=== PATIENT | female | born 1980 | race Caucasian/White ===

== ENCOUNTER 2016-09-13 20:29 | Emergency (ER) | payer MEDICARE, OTHER ==
[2016-09-13 22:17] LABS: BASOPHIL % 0.4 % (0-2); PLATELET COUNT 325 x10^3mcL (130-400); RED CELL DISTRIBUTION WIDTH 13.2 % (11.5-14.5)
[2016-09-13 22:31] LABS: CALCIUM 9.2 mg/dL (8.5-10.1); CARBON DIOXIDE 29.3 mmol/L (21-32); CHLORIDE SERUM 104 mmol/L (98-107); CREATININE SERUM 0.7 mg/dL (0.6-1.0); GFR1 > 60 mL/min; GLUCOSE SERUM 117 mg/dL (74-106); POTASSIUM SERUM 3.6 mmol/L (3.5-5.1); SODIUM SERUM 141 mmol/L (136-145)
[2016-09-13 22:39] LABS: ALBUMIN 3.4 g/dL (3.4-5.0); ALKALINE PHOSPHATASE 55 U/L (46-116); ALT/SGPT 15 U/L (14-59); AST/SGOT 10 U/L (15-37); BILIRUBIN TOTAL 0.2 mg/dL (0.20-1.00); MAGNESIUM 2.1 mg/dL (1.8-2.4); T4(THYROXINE) 11.6 ug/dL (4.7-13.3); TOTAL PROTEIN, SERUM 7.6 g/dL (6.4-8.2)
[2016-09-13 23:41] VITALS: BP 130/88
== END 2016-09-13 23:41 | disposition home or self-care (01) ==
LOC: ED 20:29
PROVIDERS: Emergency Medicine
DX: R25.2 Cramp and spasm (principal); M79.605 Pain in left leg; E07.9 Disorder of thyroid, unspecified
CPT/HCPCS: Q0092

== ENCOUNTER 2018-12-01 11:26 | Emergency (ER) | payer MEDICARE, MEDICAID ==
[~2018-12-01] VITALS: Ht 165.1 cm; Wt 103.9 kg
[2018-12-01 11:30] VITALS: BP 118/88; Ht 165.1 cm; Wt 103.9 kg
== END 2018-12-01 13:10 | disposition home or self-care (01) ==
LOC: ED 11:26
DX: N39.0 Urinary tract infection, site not specified (principal); E03.9 Hypothyroidism, unspecified